=== PATIENT | female | born 1970 | race Caucasian/White ===

== ENCOUNTER → 2020-08-30 | Outpatient (CLI) | payer OTHER ==
[~2020-08-30] MED LIST: ALPRAZOLAM 0.0.25 M1; ASPIR 8181 MG PO; AZITHROMYCIN 2250 MG PO; BENICAR40 MG PO; CADUET 10 MG-21 EACH PO; CADUET 10 MG-41 EACH PO; CELEXA20 MG PO; CO Q10200 MG PO; COZAAR 50 MG TA50 M2 PO; CRANBERRY PLUS1 EACH PO; EFFIENT10 MG PO; FISH OIL 1,0001 EAC9; L-LYSINE1000 M1 PO; LAMICTAL100 MG PO; LUTEIN40 MG PO; MAGNESIUM OXID400 MG PO; METFORMIN HCL500 MG PO; NITROGLYCERIN0.4 MG SUBLING; PREDNISONE 20 M20 M1 PO; PRILOSEC 20 MG20 MG PO; PRILOSEC40 MG; SUPER B COMPLE150 MG PO; TUMS PO; VENTOLIN HFA 1818 GM INH; VITAMIN B-12500 MCG PO; VITAMIN D1000 UNI1 PO; VITAMIN E400 UNI7 PO; VITAMINC500 PO; ZYRTEC10 M2
--- NOTE | 2020-09-01 15:16 | PATH ---
[address] [address] PATHOLOGY RPT PROCEDURE Name: CORINA HERNÁNDEZ Room: [facility]#: [id number] Admission: 08/30/20 Date of : 70 Discharge: Report #: [id number] Path Case #: [id number] [facility] Accession Number: [id number] . 01 Material submitted: . breast - LEFT BREAST CALCIFICATIONS. Modifiers: left . 01 Clinical history: . LEFT BREAST STEREOTACTIC BIOPSY FOR CALCIFICATIONS . 02 Diagnosis: Left breast calcifications, stereotactic biopsy: - Benign breast tissue with usual ductal epithelial hyperplasia, cystic apocrine change and focal chronic inflammation, with luminal calcifications identified. See comment. . (NICKY:tiffani; 08/31/2020) [facility] 08/31/2020 1554 Local . 02 Comment: Reviewed with Dr. Elvis Benson on 09/01/2020 who agrees with the diagnosis. . (NICKY:mml; 08/31/2020) . 02 Electronically signed: . Richmond Sánchez MD, Pathologist NPI- [id number] . 01 Gross description: . Received in formalin labeled "Corina Hernández and left breast calcifications". Received are multiple white-yellow fibroadipose cores ranging from 1.2-2.3 cm in length and 0.2-0.3 cm in diameter. The specimen is entirely submitted in cassettes A1-A5. The specimen was collected on 08/30/2020 at 12:20 PM and placed into formalin at 12:30 PM. The specimen will be removed from formalin on 08/30/2020 at 11:40 PM. The specimen will be in formalin more than 6 hours and less than 72 hours.([facility]; 08/30/2020) [facility] 08/31/2020 1552 Local . 02 Pathologist provided ICD-10: N62, N61.0, N64.89 . 02 CPT . 011738 Specimen Comment: A courtesy copy of this report has been sent to [phone] Specimen Comment: Report sent to Performed at: 01 [place] [address] PATHOLOGY RPT PROCEDURE Name: CORINA HERNÁNDEZ [facility] [id number] Admission: 08/30/20 Date of : 70 Discharge: Report #: [id number] Path Case #: [id number] [facility] [place] [address], [place], [place] [id number] MD Miguelito Gomez MD Phone: [phone] Performed at: 02 [facility] [address], [place], [place] [id number] MD Richmond Sánchez MD Phone: [phone]
== END ==
LOC: M.RAD 11:00
PROVIDERS: ATTEND Nurse Practitioner Family
DX: R92.1 Mammographic calcification found on diagnostic imaging of breast (principal); N64.89 Other specified disorders of breast; N61.0 Mastitis without abscess; N62 Hypertrophy of breast; Z79.899 Other long term (current) drug therapy; Z88.0 Allergy status to penicillin; Z88.8 Allergy status to other drugs, medicaments and biological substances

== ENCOUNTER → 2021-02-14 | Outpatient (CLI) | payer OTHER | LOC: M.RAD 08:59 | PROVIDERS: ATTEND Nurse Practitioner Family | DX: R92.8 Other abnormal and inconclusive findings on diagnostic imaging of breast (principal) ==